=== PATIENT | male | born 1980 | race Caucasian/White ===

== ENCOUNTER 2021-02-14 17:05 | Emergency (ER) | payer OTHER ==
[~2021-02-14] VITALS: Ht 167.6 cm; Wt 65.8 kg
[2021-02-14] MEDS ORDERED: Silvadene20 GM TOP (17:26)
== END 2021-02-14 17:30 | disposition home or self-care (01) ==
LOC: ER 17:05
DX: T21.22XA Burn of second degree of abdominal wall, initial encounter (principal); T31.0 Burns involving less than 10% of body surface
CPT/HCPCS: 99282